=== PATIENT | male | born 1955 | race Asian ===

== ENCOUNTER 2020-11-01 14:30 | Emergency (ER) | payer OTHER ==
[~2020-11-01] VITALS: Ht 172.7 cm; Wt 71.2 kg
[2020-11-01] MEDS ORDERED: SODIUM CHLORIDE 0.9% 1000ML 1,000 ML IV STA ×2 (14:51→15:02)
[2020-11-01 15:19] LABS: BASOPHILS % 0.3 % (0.0-1.0); EOSINOPHILS # (AUTO) 0.1 (0.0-0.4); EOSINOPHILS % 1.1 % (0.0-6.0); HEMATOCRIT 40.8 % (38.2-49.6); HEMOGLOBIN 14.1 g/dL (14.0-18.0); LYMPHOCYTES # (AUTO) 1.7 (1.0-3.2); LYMPHOCYTES % 27.5 % (18.0-39.1); MEAN CORPUSCULAR HEMOGLOBIN 30.1 pg (28-32); MEAN CORPUSCULAR HGB CONC 34.6 g/dL (31-35); MONOCYTES # (AUTO) 0.6 (0.2-0.8); MONOCYTES % 9.5 % (4.4-11.3); NEUTROPHILS # (AUTO) 3.8 (2.1-6.9); NEUTROPHILS % 61.1 % (38.7-80.0); PLATELET COUNT 174 x10e3/uL (140-360); RED BLOOD COUNT 4.69 x10e6/uL (4.3-5.7); RED CELL DISTRIBUTION WIDTH 12.2 % (11.7-14.4)
[2020-11-01 15:29] LABS: ABG HCO3 23 mmol/L (22-26); ABG PCO2 34 mmHg (35-45); ABG PH 7.44 (7.35-7.45); ABG PO2 111 mmHg (80-105); ABG TCO2 24
[2020-11-01 15:38] LABS: ALBUMIN 4.2 g/dL (3.5-5.0); ALBUMIN/GLOBULIN RATIO 1.1 (0.8-2.0); ANION GAP 16.5 mmol/L (8-16); CALCIUM 8.8 mg/dL (8.4-10.2); CREATININE, SERUM 1.6 mg/dL (0.72-1.25); POTASSIUM 4.5 mmol/L (3.5-5.1)
[2020-11-01 15:44] LABS: CREATINE KINASE MB 1.1 ng/mL (0-5.0)
[2020-11-01] MEDS ORDERED: INSULIN REGULAR, HUMAN 100 UNIT/1 ML 3ML VIAL IV NR (16:03)
[2020-11-01] MEDS ORDERED: INSULIN REGULAR, HUMAN 100 UNIT/1 ML 3ML VIAL ONE (16:16)
== END 2020-11-01 16:59 | disposition home or self-care (01) ==
LOC: ER 15:00
DX: R73.9 Hyperglycemia, unspecified (principal); R53.83 Other fatigue; I25.10 Atherosclerotic heart disease of native coronary artery without angina pectoris; Z95.810 Presence of automatic (implantable) cardiac defibrillator
CPT/HCPCS: 36415; 36600; 71045; 80053; 82550; 82553; 82805; 82948; 83880; 84484; 85025; 99283; J1817; J7030